=== PATIENT | female | born 1935 | race Caucasian/White ===

== ENCOUNTER 2017-09-13 18:22 | Emergency (ER) | payer MEDICARE ==
[~2017-09-13] VITALS: Ht 162.6 cm; Wt 81.8 kg
[2017-09-13] MEDS ORDERED: NS 1,000 ML IV SCH (18:52)
[2017-09-13] MEDS ORDERED: FUROSEMIDE 40 MG/4 ML VIAL (J1940) IV ONE (19:00)
[2017-09-13] MEDS ORDERED: ASPIRIN 81 MG CHEW TABLET PO ONE (19:00)
[2017-09-13 19:13] LABS: VENOUS BASE EXCESS 3.3 (-2.0-2.0); VENOUS O2 SATURATION 76.7 % (60.0-80.0); VENOUS PARTIAL PRESSURE CO2 49.6 mmHg (38.0-50.0); VENOUS STANDARD HCO3 26.9 MEQ/L; VENOUS TOTAL CO2 30.7 MEQ/L (24.0-28.0)
[2017-09-13 19:22] LABS: BASO # 0.1 10^3/uL (0.0-0.2); BASO % 0.3 % (0.0-1.0); EOS # 0.4 10^3/uL (0.0-0.50); EOS % 2.4 % (0.0-3.0); IMMATURE GRANULOCYTE % 0.7 % (0-0); LYMPH # 2.3 10^3/uL (1.5-4.5); LYMPH % 15.7 % (24.0-44.0); MEAN CORPUSCULAR HEMOGLOBIN 27.6 pg (27.0-33.0); MEAN CORPUSCULAR HGB CONC 32.1 g/dl (32.0-36.5); MEAN CORPUSCULAR VOLUME 86.1 fl (80.0-96.0); MONO # 0.9 10^3/uL (0.0-0.8); MONO % 6.2 % (0.0-5.0); NEUTROPHILS # 11.1 10^3/uL (1.8-7.7); NEUTROPHILS % 74.7 % (36.0-66.0); PLATELET COUNT, AUTOMATED 357 10^3/uL (150-450); RED CELL DISTRIBUTION WIDTH 15.4 % (11.5-14.5); WHITE BLOOD COUNT 14.9 10^3/uL (4.0-10.0)
[2017-09-13 19:33] LABS: INR 0.97
[2017-09-13 19:43] LABS: ALBUMIN 3.4 GM/DL (3.2-5.2); ALBUMIN/GLOBULIN RATIO 0.77 (1.00-1.93); ALKALINE PHOSPHATASE 112 U/L (45-117); ALT/SGPT 27 U/L (12-78); ANION GAP 9 MEQ/L (8-16); AST/SGOT 14 U/L (7-37); BILIRUBIN,DIRECT 0.1 MG/DL (0.0-0.2); BILIRUBIN,TOTAL 0.4 MG/DL (0.2-1.0); BLOOD UREA NITROGEN 60 MG/DL (7-18); CALCIUM LEVEL 9.1 MG/DL (8.8-10.2); CARBON DIOXIDE LEVEL 31 MEQ/L (21-32); CHLORIDE LEVEL 98 MEQ/L (98-107); CREATININE FOR GFR 1.91 MG/DL (0.55-1.02); GLOMERULAR FILTRATION RATE 26.7 (>32); GLUCOSE, FASTING 197 MG/DL (83-110); POTASSIUM SERUM 4.2 MEQ/L (3.5-5.1); SODIUM LEVEL 138 MEQ/L (136-145); TOTAL PROTEIN 7.8 GM/DL (6.4-8.2)
--- NOTE | 2017-09-13 20:02 | REP ---
Clinical: Chest pain. Comparison: None. Findings: Evaluation is limited by portable technique and underpenetration which accentuate the pulmonary vasculature and interstitium. As such, mild pulmonary vascular congestion/interstitial edema cannot be excluded along with trace atelectasis. No effusion. No pneumothorax. Mediastinum and cardiac silhouette are grossly within normal limits. Skeletal structures intact. Impression: Cannot exclude pulmonary vascular congestion/interstitial edema or trace atelectasis. Signed by Tramaine Tucker MD 09/13/2017 07:54 P
[2017-09-13] MEDS ORDERED: HumaLOG INSULIN (NovoLOG) PER UNIT SC SCH (21:00)
[2017-09-13] MEDS ORDERED: LANTINJ4 SC ×2 (23:04)
[2017-09-13] MEDS ORDERED: SITA50TAB PO (23:04)
[2017-09-13] MEDS ORDERED: LOSA25TA8 PO (23:04)
[2017-09-13] MEDS ORDERED: LEVO100T5 PO (23:04)
[2017-09-13] MEDS ORDERED: FURO40TA2 PO (23:04)
[2017-09-13] MEDS ORDERED: NYST10CR TOP (23:07)
[2017-09-13] MEDS ORDERED: NYST1POW9 TOP (23:07)
[2017-09-13] MEDS ORDERED: CRES10TA32 PO (23:12)
[2017-09-13] MEDS ORDERED: FLOM5CAP PO (23:12)
[2017-09-13] MEDS ORDERED: ASPI81TA85 PO (23:12)
[2017-09-13] MEDS ORDERED: CALC500T49 PO (23:12)
[2017-09-13] MEDS ORDERED: OMEP20CA3 PO (23:12)
[2017-09-13] MEDS ORDERED: AMLO5TAB2 PO (23:12)
[2017-09-13] MEDS ORDERED: VITMTA PO (23:12)
[2017-09-13] MEDS ORDERED: POTA10CA PO (23:12)
[2017-09-14] MEDS ORDERED: ONDANSETRON 4 MG TAB (S0181) PO PRN
[2017-09-14] MEDS ORDERED: FUROSEMIDE 40 MG/4 ML VIAL (J1940) IV SCH
[2017-09-14] MEDS ORDERED: ACETAMINOPHEN TAB 650MG DOSE (2X325MG) PO PRN
[2017-09-14] MEDS ORDERED: DEXTROSE 50% 50 ML SYRINGE IV PRN (00:15)
[2017-09-14] MEDS ORDERED: GLUCOSE 4 GM CHEW TABLET PO PRN (00:15)
[2017-09-14] MEDS ORDERED: GLUCAGON FOR INJ 1 MG VIAL (J1610) SC PRN (00:15)
--- NOTE | 2017-09-14 01:40 | HPEPDOC ---
General Date of Admission 09/13/17 Attending Physician: MAILE VASQUEZ MD Chief Complaint 82-year-old female presents to the ED with son and daughter for intermittent substernal chest pain worse with breathing and on exertion, and chest tightness , wheezing, and 20 pound unintentional weight gain in the past month and lower leg swelling. No aggravating or alleviating factors. Patient is an unreliable historian regarding her PMH, and no previous medical records are available. PMH ascertainable from her med list include: DM2 insulin-dependent, HTN, CKD stage III, TIA. Patient denies history of CHF, [place], or other cardiac issues, and states she had no similar prior episodes. Patient states symptoms began when she was readjusting herself in chair, and also had skipped her diuretic pill today because she was traveling [place]. Patient states she has had lower leg swelling chronically for 4 years. Denies all other ROS, including palpitations, lightheadedness, dizziness, n/v. In ED, vitals were WNL, cardiac markers were negative and EKG x2 were NSR. CXR revealed a possible pulmonary vascular congestion and interstitial edema. Home Medications Scheduled Amlodipine Besylate (Amlodipine Besylate) 5 Mg Tab, 5 MG PO DAILY, (Reported) Aspirin (Aspir-81) 81 Mg Tab, 81 MG PO DAILY, (Reported) Calcium (Calcium) 500 Mg Tab, 500 MG PO BID, (Reported) Furosemide (Furosemide) 40 Mg Tab, 40 MG PO BID, (Reported) Insulin Glargine (Lantus Solostar) 100 Unit/Ml Inj, 50 UNITS SC QAM, (Reported) Insulin Glargine (Lantus Solostar) 100 Unit/Ml Inj, 10 UNITS SC ACS, (Reported) Levothyroxine Sodium (Synthroid) 100 Mcg Tab, 100 MCG PO DAILY, (Reported) Losartan Potassium (Losartan Potassium) 25 Mg Tab, 25 MG PO BID, (Reported) Multivitamins *[facility] STOCKED* (Thera M Plus *[facility]OCK[facility]*) 1 Tab Tab, 1 TAB PO DAILY, (Reported) Nystatin (Nystatin Powder) 100,000 Unit/Gm Pow, 1 DOSE TOP PRN, (Reported) TO SKIN FOLDS Nystatin (Nystatin) 100,000 Unit/Gm Cre, 1 DOSE TOP PRN, (Reported) TO SKIN FOLDS Omeprazole (Omeprazole) 20 Mg Cap, 20 MG PO DAILY, (Reported) Potassium Chloride (Klor-Con M10) 10 Meq Tabcr, 10 MEQ PO BID, (Reported) Rosuvastatin (Crestor) 10 Mg Tab, 10 MG PO DAILY, (Reported) Sitagliptin (Januvia) 50 Mg Tab, 50 MG PO DAILY, (Reported) Tamsulosin Hydrochloride (Flomax) 0.4 Mg Cap, 0.4 MG PO DAILY, (Reported) Allergies Coded Allergies: No Known Allergies (Unverified , 09/13/17) Past Medical History Medical History TIA DM2, insulin-dependent HTN CKD stage III Osteoarthritis Surgical History Hysterectomy Bladder suspension Bilateral cataract Right carotid artery stenting Appendectomy Right femur fracture fixation with ines Family History Mother: HTN Father: Enlarged heart Brother: Heart surgery, diabetes Other Brother: [place] Sister: Healthy Social History Lives at home with son. Ambulates with rolling walker Tobacco: Quit 25 years ago (1 PPD for 20+ years cold ( Alcohol: Denies Illicit substances: Denies Review of Symptoms Constitutional: Denies: Chills, Fever, Night Sweats, Weakness, Fatigue, Weight Loss Eyes: Denies: Pain, Vision change ENT: Denies: Head Aches, Ear Pain, Dysphagia Pulmonary: Reports: Dyspnea, Cough (1 week, phlegm), Denies: Pleuritic Chest Pain Cardiovascular: Reports: Chest Pain, Edema, Other Symptoms (20 lb unintentional wt gain in last month), Denies: Palpitations, Lt Headedness Gastrointestinal: Denies: Nausea, Vomiting, Abdominal Pain, Diarrhea, Constipation, Melena, Hematochezia Genitourinary: Reports: Frequency, Other Symptoms (urgency, hesitancy), Denies: Dysuria Endocrine: Denies: Heat Intolerance, Cold Intolerance Neurological: Denies: Weakness, Numbness, Incoordination Physical Examination General Exam: Positive: Alert, Cooperative, No Acute Distress Eye Exam: Positive: PERRLA, Conjunctiva & lids normal, EOMI, Negative: Ptosis ENT Exam: Positive: Atraumatic, Mucous membr. moist/pink, Tongue Midline Neck Exam: Positive: Supple, Negative: JVD, Lymphadenopathy Chest Exam: Positive: Clear to auscultation, Normal air movement Heart Exam: Positive: Rate Normal, Regular Rhythm, Normal S1, Normal S2, Negative: Murmurs, Rubs Telemetry: Positive: No significant arrhythmia Abdomen Exam: Positive: Normal bowel sounds, Soft, Negative: Tenderness, Hepatospenomegaly Extremity Exam: Positive: Edema (2+ b/l), Normal pulses, Negative: Clubbing, Cyanosis, Tenderness Skin Exam: Positive: Nl turgor and temperature, Negative: Rash, Lesion Neuro Exam: Positive: Normal Speech, Normal Tone Psych Exam: Positive: Mental status NL, Mood NL, Oriented x 3 Vital Signs Vital Signs Date Time Temp Pulse Resp B/P (MAP) Pulse Ox O2 Delivery O2 Flow Rate FiO2 09/13/17 20:12 09/13/17 18:22 98.8 65 18 90 Room Air Laboratory Data Labs 24H Laboratory Tests 2 09/13/17 18:59: Immature Granulocyte % (Auto) 0.7H, White Blood Count 14.9H, Red Blood Count 4.38, Hemoglobin 12.1, Hematocrit 37.7, Mean Corpuscular Volume 86.1, Mean Corpuscular Hemoglobin 27.6, Mean Corpuscular Hemoglobin Concent 32.1, Red Cell Distribution Width 15.4H, Platelet Count 357, Neutrophils (%) (Auto) 74.7H, Lymphocytes (%) (Auto) 15.7L, Monocytes (%) (Auto) 6.2H, Eosinophils (%) (Auto) 2.4, Basophils (%) (Auto) 0.3, Neutrophils # (Auto) 11.1H, Lymphocytes # (Auto) 2.3, Monocytes # (Auto) 0.9H, Eosinophils # (Auto) 0.4, Basophils # (Auto) 0.1, Immature Granulocyte # (Auto) 0.1H, Nucleated Red Blood Cells % (auto) 0.0, Prothrombin Time 13.0, Prothromb Time International Ratio 0.97, Blood Gas Bicarbonate Standard 26.9, Venous Blood pH 7.387, Venous Blood Partial Pressure CO2 49.6, Venous Blood Partial Pressure O2 43.0, Venous Blood Total Carbon Dioxide 30.7H, Venous Blood HCO3 29.1H, Venous Blood Oxygen Saturation 76.7, Venous Blood Base Excess 3.3H, Anion Gap 9, Glomerular Filtration Rate 26.7L, Calcium Level 9.1, Aspartate Amino Transf (AST/SGOT) 14, Alanine Aminotransferase (ALT/SGPT) 27, Alkaline Phosphatase 112, Total Bilirubin 0.4, Direct Bilirubin 0.1, Total Creatine Kinase 232H, Creatine Kinase MB 2.5, Creatine Kinase MB Relative Index 1.07, Troponin I < 0.02, Total Protein 7.8, Albumin 3.4, Albumin/Globulin Ratio 0.77L, Lipase 192 09/13/17 21:23: Total Creatine Kinase 244H, Creatine Kinase MB 2.2, Creatine Kinase MB Relative Index 0.90, Troponin I < 0.02 CBC/BMP Laboratory Tests 09/13/17 18:59 Red Blood Count 4.38, Mean Corpuscular Volume 86.1, Mean Corpuscular Hemoglobin 27.6, Mean Corpuscular Hemoglobin Concent 32.1, Red Cell Distribution Width 15.4 H, Neutrophils (%) (Auto) 74.7 H, Lymphocytes (%) (Auto) 15.7 L, Monocytes (%) (Auto) 6.2 H, Eosinophils (%) (Auto) 2.4, Basophils (%) (Auto) 0.3, Neutrophils # (Auto) 11.1 H, Lymphocytes # (Auto) 2.3, Monocytes # (Auto) 0.9 H , Eosinophils # (Auto) 0.4, Basophils # (Auto) 0.1 Microbiology Microbiology 09/13/17 Blood Culture, Received Pending 09/13/17 Blood Culture, Received Pending Assessment/Plan Volume overload 82-year-old female presented for 20 pound unintentional weight gain in the past month, intermittent chest pain and tightness worse with breathing and exertion, and wheezing. Patient did not take her home Lasix 40 MG due to traveling for [place]. Patient clinically has crackles at lung bases, and 2+ pitting edema bilaterally, and leukocytosis of WBC 14.9 on admission. Patient afebrile and asymptomatic. No antibiotics given. Possible pulmonary vascular congestion and interstitial edema was seen on CXR. BNP was normal, d-dimer elevated at level of 1205. Initial assessment of bilateral lower extremity Doppler was negative for DVT. Patient's well's score is 1.5, at low risk of PE, but unable to rule out due to lab and patient clinical presentation. FOBT was done to rule out a GI bleed in the case the patient needed to start immediate anticoagulation, and resulted negative. Patient is unable to get a CT angiogram of chest to rule out PE due to poor creatinine clearance from her CKD. Patient is unable to undergo a VQ scan at [facility] due to unavailability of resources. Thus, patient required a transfer to [facility] for a VQ scan for possible PE. Plan of care was discussed with patient and son and daughter, and her transfer was set up. Plan / VTE VTE Prophylaxis Ordered?: Yes (Heparin) GME ATTESTATION ATTENDING NOTE I have seen and examined the patient as did the resident I have discussed the case and reviewed the plan with her. I concur with her findings on HX and PE and agree with her A&P with the following Additions Exceptions Patient was unable to get V/Q scan here and Medically it was in the patients best interests to transfer to [place] for further w/u FRANCISCO MIRANDA DO Sep 13, 2017 23:21 GUNNAR MCCARTHY MD Sep 14, 2017 06:47
[2017-09-14] MEDS ORDERED: ENOXAPARIN 100MG/1ML SYRINGE (J1650) SC ONE (03:00)
[2017-09-14] MEDS ORDERED: IPRATROPIUM 0.02% SOLN 0.5MG/2.5 ML NEB INH PRN (03:30)
[2017-09-14 04:08] LABS: MAGNESIUM LEVEL 1.9 MG/DL (1.8-2.4); PHOSPHORUS LEVEL 3.9 MG/DL (2.5-4.9)
--- NOTE | 2017-09-14 05:00 | REPUSA ---
CLINICAL HISTORY: Edema. COMMENTS: Real time sonography with duplex doppler of the extremities bilaterally was performed with attention to the major deep venous structures. Evaluation reveals the common femoral, superficial femoral and popliteal veins bilaterally to be comp letely compressible without intraluminal thrombus. There is normal spontaneous phasic flow and augmen tation in all deep veins. The greater saphenous/common femoral vein junctions are patent bilaterally. Right Royal's cyst measuring 4.1x2.2x3 cm. IMPRESSION: Right Royal's cyst. No evidence of DVT in the lower extremities bilaterally. Thank you for your kind referral of this patient.
[2017-09-14 05:09] VITALS: BP 141/73
[2017-09-14] MEDS ORDERED: HEPARIN SOD (PORCINE) 5000 UNITS/ML VIAL SC SCH (06:00)
[2017-09-14] MEDS ORDERED: HumaLOG INSULIN (NovoLOG) PER UNIT SC SCH (07:30)
[2017-09-14] MEDS ORDERED: amLODIPine 5 MG TAB PO SCH (09:00)
[2017-09-14] MEDS ORDERED: LEVOTHYROXINE 100MCG TABLET (0.1MG) PO SCH (09:00)
[2017-09-14] MEDS ORDERED: NYSTATIN 100,000 UNITS/GM TOPICAL PWD 15 GM TOP SCH (09:00)
[2017-09-14] MEDS ORDERED: ASPIRIN 81 MG ENTERIC TAB PO SCH (09:00)
[2017-09-14] MEDS ORDERED: SENOKOT S TAB PO SCH (09:00)
[2017-09-14] MEDS ORDERED: ROSUVASTATIN 10 MG TAB (CRESTOR) PO SCH (09:00)
[2017-09-14] MEDS ORDERED: MULTIVITAMINS/MINERALS THERAP 1 TAB PO SCH (09:00)
[2017-09-14] MEDS ORDERED: LOSARTAN 25 MG TAB PO SCH (09:00)
[2017-09-14] MEDS ORDERED: NYSTATIN CREAM 15 GM TOP SCH (09:00)
[2017-09-14] MEDS ORDERED: OYSTER SHELL CALCIUM 500 MG TAB PO SCH (09:00)
[2017-09-14] MEDS ORDERED: POTASSIUM CHLORIDE 10 MEQ SR TABLET PO SCH (09:00)
[2017-09-14] MEDS ORDERED: OMEPRAZOLE 20 MG CAP PO SCH (09:00)
--- NOTE | 2017-09-15 06:02 | ECGEPIP ---
Stationary ECG Study [facility] - ED Test Date: 2017-09-13 Pat Name: ELICEO CHOPRA Department: Room: - Gender: F Chocolate [employer]ater: MADHU : 1935 Requested By: VALERIE ACKERMAN Order Number: [id number] Reading MD: Christian Eduardo Measurements Intervals [place] Rate: 114 P: 18 [place]: 163 QRS: 14 QRSD: 88 T: -7 QT: 310 QTc: 428 Interpretive Statements SINUS TACHYCARDIA LEFT VENTRICULAR HYPERTROPHY AND ST-T CHANGE NSTTW ABNORMALITIES PRIOR INFERIOR INFARCT NO PRIORS FOR COMPARISON Electronically Signed On 09-15-2017 6:01:52 EST by Christian Eduardo
== END 2017-09-14 06:54 | disposition other institution (70) ==
LOC: M ED 18:22
DX: I50.9 Heart failure, unspecified (principal); N19 Unspecified kidney failure; R06.00 Dyspnea, unspecified; R00.0 Tachycardia, unspecified; R94.31 Abnormal electrocardiogram [ECG] [EKG]; E11.9 Type 2 diabetes mellitus without complications; I10 Essential (primary) hypertension; K21.9 Gastro-esophageal reflux disease without esophagitis; E78.5 Hyperlipidemia, unspecified; E07.9 Disorder of thyroid, unspecified; Z87.891 Personal history of nicotine dependence; Z82.49 Family history of ischemic heart disease and other diseases of the circulatory system
CPT/HCPCS: 71010; 80048; 80076; 82550; 82553; 82803; 83690; 83735; 83880; 84100; 84484; 85025; 85379; 85610; 87040; 93005; 93041; 93970; 99285; J1940